=== PATIENT | male | born 1945 | race Two or more races ===

== ENCOUNTER 2020-02-18 17:11 | Emergency (ER) | payer MEDICARE, OTHER ==
[2020-02-18] MEDS ORDERED: DIPH/PERTUSS(ACELL)/TETANUS VAC/PF 0.5 ML SYR (>=10YO) IM ONE (17:51)
[2020-02-18] MEDS ORDERED: CEPHALEXIN 500 MG CAPSULE PO ONE (17:52)
--- NOTE | 2020-02-18 17:59 | ER Document Report ---
HPI - HPI Patient complains to provider of: Finger burn Time Seen by Provider: 02/18/20 17:51 Onset: Last week Onset/Duration: Persistent Quality of pain: Achy Pain Level: 2 Context: Patient states that he burned his right fourth finger with hot steam from a cup of tea. Patient states that he has a small open wound that got him concerned as he is diabetic. Patient uncertain of when last tetanus immunization was. Patient is right-hand dominant. Patient denies any fever. Patient has been leaving wound open to air. Associated Symptoms: Other - Right fourth finger pain Exacerbated by: Movement Relieved by: Denies Similar symptoms previously: No Recently seen / treated by doctor: No - ROS ROS below otherwise negative: Yes Systems Reviewed and Negative: Yes All other systems reviewed and negative - CONSTITUTIONAL Constitutional: DENIES: Fever - NEURO Neurology: DENIES: Weakness - GASTROINTESTINAL Gastrointestinal: DENIES: Nausea - MUSCULOSKELETAL Musculoskeletal: REPORTS: Extremity pain, Swelling - DERM Skin Problems: Burn Past Medical History - General Information source: Patient - Social History Smoking Status: Never Smoker Chew tobacco use (# tins/day): No Frequency of alcohol use: Social Drug Abuse: None Occupation: None Lives with: Family Family History: Reviewed & Not Pertinent - Past Medical History Cardiac Medical History: Reports: Hx Hypertension Endocrine Medical History: Reports: Hx Diabetes Mellitus Type 2 Past Surgical History: Reports: Hx Cardiac Surgery Vertical Provider Document - CONSTITUTIONAL Agree With Documented VS: Yes Exam Limitations: No Limitations General Appearance: WD/WN, No Apparent Distress - HEENT HEENT: Atraumatic, Normocephalic - NECK Neck: Normal Inspection - RESPIRATORY Respiratory: Breath Sounds Normal, No Respiratory Distress - CARDIOVASCULAR Cardiovascular: Regular Rate, Regular Rhythm Pulses: Normal: Radial - MUSCULOSKELETAL/EXTREMETIES Musculoskeletal/Extremeties: MAEW, FROM - NEURO Level of Consciousness: Awake, Alert, Appropriate Motor/Sensory: No Motor Deficit - DERM Integumentary: Warm, Dry Notes: Patient with partial thickness burn that appears to be healing to the dorsal aspect of the right fourth finger over the DIP joint. Burn is not circumferential. Patient with almost full range of motion to the joint. Course - Re-evaluation Re-evalutation: 02/18/20 17:57 Patient states that he feels as though he is swelling to the finger. Patient encouraged to perform full range of motion to the affected joint. Patient advised to keep wound covered as he has not been placing a dressing over the wound. Will update patient's tetanus and start patient on antibiotics. Patient will be given a referral form to the wound clinic for further evaluation. Consulted with Dr. Norman who agrees with this plan of care. 02/18/20 19:46 - Vital Signs Vital signs: Temp Pulse Resp BP Pulse Ox 98.4 F 60 16 134/72 H 100 02/18/20 17:14 02/18/20 17:14 02/18/20 17:14 02/18/20 17:14 02/18/20 17:14 - Laboratory Results Critical Laboratory Results Reviewed: No Critical Results - Radiology Results Critical Radiology Results Reviewed: No Critical Results Discharge - Discharge Clinical Impression: Burn of finger Qualifiers: Encounter type: initial encounter Laterality: right Burn degree: partial thickness (2nd degree) Qualified Code(s): T23.221A - Burn of second degree of single right finger (nail) except thumb, initial encounter Condition: Stable Disposition: HOME, SELF-CARE Instructions: Schumacher ([facility]), Cephalexin ([facility]), Tetanus Immunization Given ([facility]) Additional Instructions: Return immediately for any new or worsening symptoms Followup with your primary care provider, call tomorrow to make a followup appointment Follow-up with the wound clinic for further evaluation, call tomorrow for an appointment Keep Wound covered as it continues to heal Prescriptions: Mupirocin [Bactroban 2% Ointment 22 gm] 1 applic TP TID #22 gm Cephalexin Monohydrate [Keflex 500 mg Capsule] 500 mg PO Q6H 5 Days #20 capsule Referrals: STEPH BURGESS MD [Primary Care Provider] - Follow up as needed [facility] [Provider Group] - Follow up as needed
[2020-02-18 18:31] VITALS: BP 130/72
== END 2020-02-18 18:30 | disposition home or self-care (01) ==
LOC: ER 17:11
DX: T23.221A Burn of second degree of single right finger (nail) except thumb, initial encounter (principal); X13.1XXA Other contact with steam and other hot vapors, initial encounter; E11.9 Type 2 diabetes mellitus without complications; I10 Essential (primary) hypertension; Z23 Encounter for immunization
CPT/HCPCS: 99283; 90471; 90715; A9270